=== PATIENT | male | born 1950 | race Caucasian/White ===

== ENCOUNTER → 2020-12-16 | Outpatient (CLI) | payer OTHER ==
[~2020-12-16] MED LIST: AMOCLA875 PO; ASPI325 PO; ATOR40TA PO; Acyclovir400 MG PO; Aspir-Low81 MG PO; CAND4 PO; ERYT.5TO BOTHEYES; HYDCHL12.5 PO; LEVO750 PO; LOSA50 PO; Multiple Vitam1 EAC1 PO; NITR.6SL SL; Nitrostat0.4 MG SL; Refresh Eye Dr1 EACH BOTHEYES; SUDOGEST; VASCEPA1 GM PO
[2020-12-16 13:48] LABS: Stool Occult Bld Immuno 1 Negative (NEGATIVE)
== END | disposition home or self-care (01) ==
LOC: LAB 11:15 → LAB SHORT 11:15
PROVIDERS: Family Medicine
DX: Z12.11 Encounter for screening for malignant neoplasm of colon (principal)
CPT/HCPCS: 82274